=== PATIENT | male | born 1955 ===

== ENCOUNTER 2022-01-17 13:19 | Emergency (ER) | payer SELFPAY ==
[~2022-01-17] VITALS: Ht 182.9 cm; Wt 69.1 kg
[2022-01-17 13:20] VITALS: BP 137/66
== END 2022-01-17 17:35 | disposition left against medical advice (07) ==
LOC: M ED 13:19
DX: Z53.21 Procedure and treatment not carried out due to patient leaving prior to being seen by health care provider (principal)